=== PATIENT | male | born 1955 | race Caucasian/White ===

== ENCOUNTER 2017-09-11 14:40 | Emergency (ER) | payer OTHER ==
[2017-09-11] MEDS ORDERED: Tetan/Diph/Pertus SYR(Tdap)* 0.5 ML SYR(BOOSTRIX) use SYR IM ONE (15:39)
[2017-09-11] MEDS ORDERED: Lidocaine 1%* 5 ML VIAL INJ ONE (16:03)
--- NOTE | 2017-09-11 16:10 | ED ---
Laceration/Wound HPI - HPI Summary HPI Summary: Patient is a 61-year-old male who presents emergency department for right mid arm laceration that occurred today. Patient states he was taking out the garbage and cut his right arm on an unknown object. He is unaware of his last tetanus immunization. Symptoms are mild in severity. No current modifying factors. Pt. without significant past medical history. - History of Current Complaint Stated Complaint: RT ARM LAC Time Seen by Provider: 09/11/17 15:45 Hx Obtained From: Patient Pain Intensity: 3 - Allergy/Home Medications Allergies/Adverse Reactions: Allergies Allergy/AdvReac Type Severity Reaction Status Date / Time No Known Allergies Allergy Verified 06/24/15 08:57 PMH/Surg Hx/FS Hx/Imm Hx Previously Healthy: Yes Endocrine/Hematology History: Denies: Hx Diabetes, Hx Systemic Lupus Erythematosus Cardiovascular History: Denies: Hx Congestive Heart Failure, Hx Hypertension History: Denies: Hx Dialysis, Hx Renal Disease Musculoskeletal History: Denies: Hx Rheumatoid Arthritis - Cancer History Hx Chemotherapy: No - Surgical History Surgery Procedure, Year, and Place: VASECTOMY Infectious Disease History: No Infectious Disease History: Denies: Traveled Outside the [place] in Last 30 Days - Social History Occupation: Employed Full-time Lives: With Family Alcohol Use: Weekly Substance Use Type: Reports: None Smoking Status (MU): Former Smoker Review of Systems Positive: Other - Right arm laceration Negative: Weakness, Paresthesia, Numbness All Other Systems Reviewed And Are Negative: Yes Physical Exam Triage Information Reviewed: Yes Vital Signs On Initial Exam: Initial Vitals Temp Pulse Resp BP Pulse Ox 98.1 F 88 16 135/94 98 09/11/17 15:00 09/11/17 15:00 09/11/17 15:00 09/11/17 15:00 09/11/17 15:00 Vital Signs Reviewed: Yes Appearance: Positive: Well-Appearing - Pt. sitting on bed in N[place]. Skin: Positive: Warm, Dry Head/Face: Positive: Normal Head/Face Inspection Eyes: Positive: Normal Neck: Positive: Supple Musculoskeletal: Positive: Other - 3 cm gaping, superficial laceration noted to the right proximal forearm. Full range of motion at the elbow and wrist. No active bleeding. Wound is clean. Neurological: Positive: Normal, CN Intact II-III Psychiatric: Positive: Affect/Mood Appropriate Procedures - Laceration/Wound Repair 1 Location: upper extremity - Right Description: Linear Anesthesia: Local, 1.0%, Lido - 10cc Betadine Prep?: No - hibiclens Laceration/Wound Explored: clean Closure: Single Layer Suture Type: Nylon - 4-0 Number of Sutures: 5 Layer Closure?: No Sterile Dressing Applied?: Yes Diagnostics - Vital Signs Vital Signs Temp Pulse Resp BP Pulse Ox 09/11/17 15:00 98.1 F 88 16 135/94 98 - Laboratory Lab Statement: Any lab studies that have been ordered have been reviewed, and results considered in the medical decision making process. Laceration Repair Course/Dx - Course Course Of Treatment: Patient presenting to the ER for a minor right arm laceration that was repaired as noted above. Tetanus was updated. Suture removal in 7-10 days. Advised wound clean and dry. To return to the ER for redness, swelling or drainage from wound. Patient understands and agrees with plan. - Differential Dx Differental Diagnoses: Laceration, Tendon Laceration - Clinical Impression Provider Diagnoses: Arm laceration Discharge - Sign-Out/Discharge Documenting (check all that apply): Patient Departure - Discharge Plan Condition: Good Disposition: HOME Patient Education Materials: Care For Your Stitches (ED), Laceration (ED) Referrals: Nina Barnhart MD [Primary Care Provider] - Additional Instructions: Suture removal in 7-10 days Keep wound clean and dry Return to ER for redness, swelling or drainage from wound - Billing Disposition and Condition Condition: GOOD Disposition: Home
[2017-09-11 17:08] VITALS: BP 136/105
== END 2017-09-11 17:04 | disposition home or self-care (01) ==
LOC: ED 14:40
DX: S51.811A Laceration without foreign body of right forearm, initial encounter (principal); W26.9XXA Contact with unspecified sharp object(s), initial encounter; Y93.89 Activity, other specified; Y92.9 Unspecified place or not applicable; Z23 Encounter for immunization; Z87.891 Personal history of nicotine dependence
CPT/HCPCS: 12002; 90471; 90715; 99282

== ENCOUNTER 2018-06-28 05:49 | Observation (INO) | payer OTHER ==
[~2018-06-28 05:49] MED LIST: Buffered Lidocaine 1% SYRIN* 1 ML/SYRINGE INTRADERM ONE
[2018-06-28] MEDS ORDERED: Famotidine IV* 10 MG/ML 2 ML (20 mg) IV ONE (06:00)
[2018-06-28] MEDS ORDERED: Lactated Ringers 1000 ML Bag* 1,000 ML IV SCH (06:00)
[2018-06-28] MEDS ORDERED: Famotidine IV* 10 MG/ML 2 ML (20 mg) ONE (06:01)
[2018-06-28] MEDS ORDERED: ceFAZolin 2 GM PREMIX in ORs 2 GM/50 ML BAG IVPB ONE (06:01)
[2018-06-28] MEDS ORDERED: Buffered Lidocaine 1% SYRIN* 1 ML/SYRINGE INTRADERM ONE (06:01)
[2018-06-28] MEDS ORDERED: fentaNYL* 50 MCG/ML 2 ML VIAL (100 MCG VIAL) ONE ×2 (07:05→08:16)
[2018-06-28] MEDS ORDERED: Ondansetron INJ* 2 MG/ML VIAL ONE (07:05)
[2018-06-28] MEDS ORDERED: Propofol* 10 MG/ML 20 ML BTL ONE ×2 (07:05→07:53)
[2018-06-28] MEDS ORDERED: Dexamethasone IV* 4 MG/ML 1 ML (4 MG) ONE (07:05)
[2018-06-28] MEDS ORDERED: Lidocaine 2% PF * 5 ML VIAL ONE (07:05)
[2018-06-28] MEDS ORDERED: Midazolam* 1 MG/ML 10 ML VIAL (10 MG) ONE (07:05)
[2018-06-28] MEDS ORDERED: Lidocaine 1% INJ* 10 MG/ML 30 ML SDV ONE (07:10)
[2018-06-28] MEDS ORDERED: Ketorolac INJ* 30 MG/ML 1 ML VIAL ONE ×2 (08:01→08:37)
[2018-06-28] MEDS ORDERED: Glycopyrrolate IV* 0.2 MG/ML 1 ML VIAL ONE (08:08)
[2018-06-28] MEDS ORDERED: Midazolam* 1 MG/ML 5 ML VIAL (5 MG) ONE (08:17)
[2018-06-28] MEDS ORDERED: oxyCODONE/Acetamin 5/325 MG* TAB PO PRN (08:46)
[2018-06-28] MEDS ORDERED: Ondansetron INJ* 2 MG/ML VIAL IV PRN (08:46)
[2018-06-28] MEDS ORDERED: Naloxone* 0.4 MG/ML 1 ML VIAL IV PRN (08:46)
[2018-06-28] MEDS ORDERED: fentaNYL* 50 MCG/ML 2 ML VIAL (100 MCG VIAL) IV PRN (08:46)
[2018-06-28] MEDS ORDERED: Acetaminophen TAB* 325 MG PO PRN (14:29)
[2018-06-28] MEDS ORDERED: HYDROcodone/ACETAMIN 5-325 MG* 1 TAB PO PRN (14:29)
--- NOTE | 2018-06-28 14:41 | PN ---
Progress Note - Progress Note Date of Service: 06/28/18 Note: Post procedure Mr. Vazquez was found to have a small right apical pneumothorax on routine CXR. He has been asymptomatic. A f/u CXR shows no increase in the PTX but he was also noted to have a small effusion. Due to the findings, I have recommended continued observation overnight with serial CXR. If he develops worrisome symptoms or clinical picture deteriorates , he may then require a chest tube placement. I discussed the plan with Mr. Vazquez and his . All questions were answered. He stated understanding and agrees to the plan.
--- NOTE | 2018-06-28 17:30 | OP ---
CC: Nina Barnhart MD; Josué Gibbons MD, [facility] [place], [place], [place]; Shubham Moraes MD * DATE OF OPERATION: 06/28/18 - ROOM #335 DATE OF : 55 SURGEON: Marcelo Manuel MD WET MIX OPERATOR: None. ANESTHESIOLOGIST: Dr. Harris. ANESTHESIA: Local MAC. PRE-OP DIAGNOSIS: Esophageal cancer. POST-OP DIAGNOSIS: Esophageal cancer. OPERATIVE PROCEDURE: Placement of infusion ports, right internal jugular. ESTIMATED BLOOD LOSS: 5 mL. IV FLUIDS: Crystalloid. SPECIMENS: None. DRAINS: None. COMPLICATIONS: Right pneumothorax. COUNTS: The instrument, needle, and sponge counts were correct. DESCRIPTION OF PROCEDURE: The patient was brought to the operating room and placed on the table supine. Sequential compression devices were placed on both lower extremities. Intravenous sedation was administered. His chest and neck were prepped and draped in the usual sterile fashion. He received appropriate intravenous antibiotics and time-out was performed. Initial attempt for access was at the left subclavian site. After anesthetizing the area, an 18-gauge needle was used to gain access, but there was no ability to pass the guidewire after gaining entry to the vein. The attempts were aborted after several sticks and then attempt was made on the right side. Two attempts were made in the right subclavian site. One point the patient was coughing and it was decided to abort attempts at subclavian access in favor of an anterior right internal jugular approach. After an additional anesthetic was infiltrated, the ultrasound guidance was used to access the right internal jugular vein without difficulty and the guidewire was passed into the superior vena cava and its position confirmed with fluoroscopic guidance. Subsequently, additional anesthetic was infiltrated into the upper right chest in order to create the subcutaneous pocket. Additional anesthetic was infiltrated into the subcutaneous tissues along the proposed line of the catheter tunnel and an 8-Russian PowerPort catheter was tunneled through the guidewire insertion site. The peel-away sheath and dilator were advanced and the guidewire and dilator were removed and then catheter was advanced into the superior vena cava with a tip visualized under fluoroscopic guidance at the atriocaval junction. The catheter was then cut to the appropriate length and secured to the port and then the port was placed into the pocket. Access with the Stoll needle was performed and the port was easily drawn and flushed and ultimately flushed with heparinized saline. The port was secured in the pocket with the single suture of 2-0 Prolene. The pocket was closed in 2 layers with 3 -0 Vicryl for the subcutaneous tissues and 4-0 Monocryl for the skin in running subcuticular fashion. The counter incision in the neck was closed with a 4-0 Monocryl interrupted subcuticular fashion. Steri-Strips were applied along with a Tegaderm dressing. The patient was transferred to the recovery room and a postprocedural film did reveal a small right apical pneumothorax. The patient was kept for observation subsequently. [id number]/[facility] #: [id number] [facility] CENTEREstrella
[2018-06-29 07:53] VITALS: BP 121/71
[2018-06-29] MEDS ORDERED: Pantoprazole TAB * 40 MG TAB PO SCH (09:00)
[2018-06-29] MEDS ORDERED: amLODIPine TAB* 5 MG PO SCH (09:00)
== END 2018-06-29 10:30 | disposition home or self-care (01) ==
LOC: OR 05:49 → SSU 14:29
PROVIDERS: ADMIT Surgery; ATTEND Surgery
DX: C15.9 Malignant neoplasm of esophagus, unspecified (principal); C16.0 Malignant neoplasm of cardia; C78.89 Secondary malignant neoplasm of other digestive organs; J93.9 Pneumothorax, unspecified; K21.9 Gastro-esophageal reflux disease without esophagitis; N40.0 Benign prostatic hyperplasia without lower urinary tract symptoms
CPT/HCPCS: 71045; 96374; 96375; 96376; A9270-GY; C1788; G0378; J0690; J1100; J1642; J1885; J2250; J2405; J2704; J3010